=== PATIENT | female | born 1950 | race Two or more races ===

== ENCOUNTER 2019-01-22 21:33 | Inpatient (IN) | payer MEDICARE, MEDICAID ==
[~2019-01-22] VITALS: Ht 170.2 cm; Wt 92.1 kg
[2019-01-22 23:10] VITALS: BP 158/89
[2019-01-22] MEDS ORDERED: METO100T14 PO (23:38)
[2019-01-22] MEDS ORDERED: LEVO88TA5 PO (23:38)
[2019-01-22] MEDS ORDERED: METF-440 PO (23:38)
[2019-01-22] MEDS ORDERED: ATOR80TA PO (23:38)
--- NOTE | 2019-01-22 23:55 | NUR ---
[facility]USAM HOSPITALIST DR. FRAGOSO FOR ADMITTING ORDERS AWAITING ORDERS PER DR. CHAPA HE WILL PUT IT
[2019-01-23] VITALS (8 sets, daily range): BP systolic 118–158; BP diastolic 70–89
--- NOTE | 2019-01-23 00:21 | NUR ---
RECEIVE PT VIA GURNEY FROM [facility] DIRECT ADMIT AT 01/22/19 2300 PT A/O X4, NON TOXIC APPEARING. PT STATED FEELS BETTER. DENIES CHEST PAIN AND HEADACHE AT THIS TIME. NO NAUSEA AND VOMITING, FEVER, NO C/O OF PAIN. RESPIRATIONS EVEN AND UNLABORED. KEPT CLEAN AND DRY AND COMFORTABLE. FAMILY AT BEDSIDE. SAFETY MEASURES AT ALL TIMES. WILL CONT TO MTR
[2019-01-23] MEDS ORDERED: NITROGLYCERIN 0.4 MG/TAB BOTTLE SL PRN (00:30)
[2019-01-23] MEDS ORDERED: ZOLPIDEM TARTRATE 5 MG TABLET PO PRN (00:30)
[2019-01-23] MEDS ORDERED: DEXTROSE 50%-WATER 50 ML DISP.SYRIN IV PRN (00:30)
[2019-01-23] MEDS ORDERED: HYDROCODONE/APAP 5/325MG 1 EACH TABLET PO PRN (00:30)
[2019-01-23] MEDS ORDERED: Z GUARD REMEDY 2 OZ OINT TP PRN (00:30)
[2019-01-23] MEDS ORDERED: ACETAMINOPHEN 325 MG TABLET PO PRN (00:30)
[2019-01-23] MEDS ORDERED: MAGNESIUM HYDROXIDE 30 ML UDC PO PRN (00:30)
[2019-01-23] MEDS ORDERED: ONDANSETRON HCL/PF 4 MG/2 ML VIAL IVP PRN (00:30)
[2019-01-23] MEDS ORDERED: MAG HYDROX/AL HYDROX/SIMETH 30 ML UDC PO PRN (00:30)
[2019-01-23] MEDS ORDERED: MORPHINE SULFATE INJ 2 MG/ML DISP.SYRIN IV PRN (00:30)
[2019-01-23 00:55] LABS: BASOPHILS % (AUTO) 0.5 % (0.0-2.0); EOSINOPHILS % (AUTO) 1.8 % (0.0-6.0); HEMATOCRIT 41 % (33-45); HEMOGLOBIN 14.2 g/dL (11.5-14.8); LYMPHOCYTES # (AUTO) 2.1 /CMM (0.8-4.8); LYMPHOCYTES % (AUTO) 27.9 % (20.0-44.0); MEAN CORPUSCULAR HGB CONC 35 g/dl (31.0-36.0); MEAN CORPUSCULAR VOLUME 93 fL (82-100); MONOCYTES # (AUTO) 0.5 /CMM (0.1-1.30); MONOCYTES % (AUTO) 6.7 % (2.0-12.0); NEUTROPHILS # (AUTO) 4.9 /CMM (1.8-8.9); NEUTROPHILS % (AUTO) 63.1 % (43.0-81.0); PLATELET COUNT (AUTO) 236 /CMM (150-450); RED BLOOD CELL COUNT(AUTO) 4.35 MIL/uL (4.0-5.2); WHITE BLOOD COUNT (AUTO) 7.7 K/uL (4.3-11.0)
[2019-01-23 02:42] LABS: ALANINE AMINOTRANSFERASE 39 U/L (12-78); ALBUMIN 3.8 g/dL (3.4-5.0); ALKALINE PHOSPHATASE 106 U/L (46-116); ASPARTATE AMINOTRANSFERASE 28 U/L (15-37); B-TYPE NATRIURETIC PEPTIDE 154 PG/ML (0-125); BILIRUBIN,TOTAL 0.5 mg/dL (0.2-1.0); CALCIUM, SERUM 9.2 mg/dL (8.5-10.1); CARBON DIOXIDE 26 mmol/L (21-32); CHLORIDE 103 mmol/L (98-107); CREATININE 0.7 mg/dL (0.6-1.3); GLUCOSE 147 mg/dL (74-106); MAGNESIUM 2.2 mg/dL (1.8-2.4); POTASSIUM 3.7 mmol/L (3.5-5.1); SODIUM SERUM 140 mmol/L (136-145); TOTAL PROTEIN, SERUM 8.5 g/dL (6.4-8.2); UREA NITROGEN, BLOOD 14 mg/dL (7-18)
[2019-01-23 02:51] LABS: CHOLESTEROL 216 mg/dL (<200); HDL CHOLESTEROL 48 mg/dL (40-60); LDL 129 mg/dL (0-99); THYROID STIMULATING HORMONE 11.315 uIU/mL (0.358-3.74); TRIGLYCERIDES 169 mg/dL (30-150)
[2019-01-23] MEDS: BLOOD SUGAR DIAGNOSTIC 1 EACH STRIP IN SCH ×4 (06:14→21:23)
[2019-01-23] MEDS: INSULIN REGULAR, HUMAN 100 UNIT/ML 3 ML VIAL SQ PRN ×4 (06:14→21:19)
--- NOTE | 2019-01-23 06:39 | NUR ---
PT ASLEEP AND EASILY AWAKEN, ON CARDIAC MONITORING SR 78 IN THE TELE MONITOR NO COMPLAIN OF CHEST PAIN AT THIS TIME. SLEPT WELL THROUGHOUT THE NIGHT. NO S/S OF DISTRESS, NURSING CARE RENDERED, KEPT CLEAN AND DRY AND COMFORTABLE. NEEDS ATTENDED AND ANTICIPATED. SAFETY MEASURES AT ALL TIMES. ENDORSE TO THE NEXT SHIFT.
--- NOTE | 2019-01-23 08:07 | NUR ---
RN OPENING NOTES PT AWAKE AND RESTING IN BED. NO COMPLAINTS OF PAIN, SOB OR DISTRESS AT THIS TIME. PT TELE MONITORED NSR. PT HAS A RIGHT AC #20 IV INTACT AND PATENT. SAFETY PRECAUTIONS IN PLACE, BED IN LOWEST LOCKED POSITION, X2 SIDE RAILS UP AND CALL LIGHT WITHIN REACH. WILL CONTINUE TO MONITOR.
[2019-01-23] MEDS: METFORMIN 500 MG TABLET PO SCH ×2 (08:52→17:00)
[2019-01-23] MEDS: LEVOTHYROXINE SODIUM 88 MCG TABLET PO SCH (09:09)
[2019-01-23] MEDS: ASPIRIN EC 81 MG TABLET.DR PO SCH (09:09)
[2019-01-23] MEDS: LOSARTAN POTASSIUM 50 MG TABLET PO SCH (09:10)
[2019-01-23] MEDS: METOPROLOL TARTRATE 25 MG TABLET PO SCH ×2 (09:10→21:23)
[2019-01-23 09:17] LABS: BASOPHILS % (AUTO) 0.4 % (0.0-2.0); EOSINOPHILS % (AUTO) 1.8 % (0.0-6.0); HEMATOCRIT 40 % (33-45); HEMOGLOBIN 13.9 g/dL (11.5-14.8); LYMPHOCYTES # (AUTO) 1.6 /CMM (0.8-4.8); LYMPHOCYTES % (AUTO) 24.6 % (20.0-44.0); MEAN CORPUSCULAR HGB CONC 35 g/dl (31.0-36.0); MEAN CORPUSCULAR VOLUME 93 fL (82-100); MONOCYTES # (AUTO) 0.3 /CMM (0.1-1.30); MONOCYTES % (AUTO) 5.5 % (2.0-12.0); NEUTROPHILS # (AUTO) 4.3 /CMM (1.8-8.9); NEUTROPHILS % (AUTO) 67.7 % (43.0-81.0); PLATELET COUNT (AUTO) 220 /CMM (150-450); WHITE BLOOD COUNT (AUTO) 6.4 K/uL (4.3-11.0)
--- NOTE | 2019-01-23 09:22 | NUR ---
RN NOTES PT WILL HAVE [facility] WILL HOLD METFORMIN.
[2019-01-23 09:36] LABS: CALCIUM, SERUM 8.7 mg/dL (8.5-10.1); CREATININE 0.7 mg/dL (0.6-1.3); POTASSIUM 3.6 mmol/L (3.5-5.1)
[2019-01-23 09:47] LABS: ALBUMIN 3.5 g/dL (3.4-5.0); BILIRUBIN,TOTAL 0.7 mg/dL (0.2-1.0); MAGNESIUM 1.9 mg/dL (1.8-2.4); TOTAL PROTEIN, SERUM 7.8 g/dL (6.4-8.2)
--- NOTE | 2019-01-23 18:05 | NUR ---
RN CLOSING NOTES PT AWAKE AND RESTING IN BED. NO COMPLAINTS OF PAIN, SOB OR DISTRESS DURING SHIFT. PT HAS A RIGHT AC #20 IV INTACT AND PATENT. CONSENTS AND CHECKLIST COMPLETE FOR [facility]. INFORMED PATIENT NOT TO DRINK COFFEE ON DAY OF THE ANGIOGRAM. SAFETY PRECAUTIONS IN PLACE, BED IN LOWEST LOCKED POSITION, X2 SIDE RAILS UP AND CALL LIGHT WITHIN REACH. WILL ENDORSE TO FOUR ROLL CALENDER OPERATOR NURSE FOR CONTINUITY OF CARE.
--- NOTE | 2019-01-23 20:52 | NUR ---
ALERT AND ORIENTATED X4 AMBULATING IN THE ROOM DENIES PAIN. AWARE NOT TO DRINK COFFEE FOR THE NEXT 24 HOURS AND REASON GIVEN.
[2019-01-23] MEDS ORDERED: ATORVASTATIN 40 MG TABLET PO SCH (22:00)
--- NOTE | 2019-01-24 05:14 | NUR ---
ENDING NOTES: MS. STOKES IS ALERT AND ORIENTATED THIS 12 HOURS. VERBALIZES HER NEEDS. AWARE SHE IS SCHEDULED FOR A CT ANGIO IN THE AL 01/24 AND THAT SHE NEEDS TO BE NPO AFTER MIDNIGHT. SONS AT THE BEDSIDE TO VISIT EARLY IN THE EVENING. SHE AMBULATES IN THE ROOM STEADY ON HER LEGS. NO C/O SOB SATS ARE 94% AND NO C/O C/P THIS 12 HOURS. SHE IS PLEASENT AND COOPERATIVE.
[2019-01-24] MEDS: BLOOD SUGAR DIAGNOSTIC 1 EACH STRIP IN SCH (05:59)
[2019-01-24 07:15] LABS: BASOPHILS % (AUTO) 0.6 % (0.0-2.0); EOSINOPHILS % (AUTO) 2.6 % (0.0-6.0); HEMATOCRIT 38 % (33-45); HEMOGLOBIN 13.2 g/dL (11.5-14.8); LYMPHOCYTES # (AUTO) 1.8 /CMM (0.8-4.8); LYMPHOCYTES % (AUTO) 28.1 % (20.0-44.0); MEAN CORPUSCULAR HGB CONC 35 g/dl (31.0-36.0); MEAN CORPUSCULAR VOLUME 93 fL (82-100); MONOCYTES # (AUTO) 0.5 /CMM (0.1-1.30); MONOCYTES % (AUTO) 7.4 % (2.0-12.0); NEUTROPHILS % (AUTO) 61.3 % (43.0-81.0); PLATELET COUNT (AUTO) 213 /CMM (150-450); RED BLOOD CELL COUNT(AUTO) 4.07 MIL/uL (4.0-5.2); WHITE BLOOD COUNT (AUTO) 6.5 K/uL (4.3-11.0)
[2019-01-24 07:22] LABS: CALCIUM, SERUM 8.6 mg/dL (8.5-10.1); CREATININE 0.7 mg/dL (0.6-1.3); PHOSPHORUS 3.9 mg/dL (2.5-4.9); POTASSIUM 3.8 mmol/L (3.5-5.1)
--- NOTE | 2019-01-24 07:59 | NUR ---
RN OPENING NOTES PT RESTING IN BED. NO S/S OF PAIN, DISTRESS OR SOB AT THIS TIME. PT HAS RIGHT AC #20 INTACT AND PATENT. PT AWAITING [facility] TODAY. PT NPO AT THIS TIME. WILL CONTINUE TO MONITOR. SAFETY PRECAUTIONS IN PLACE, BED IN LOWEST LOCKED POSITION, X2 SIDE RAILS UP AND CALL LIGHT WITHIN REACH. WILL CONTINUE TO MONITOR.
[2019-01-24 08:00] VITALS: BP 141/82
--- NOTE | 2019-01-24 08:16 | NUR ---
RN NOTES PT LEFT UNIT FOR [facility] ACCOMPANIED BY KATHLEEN MILLS.
[2019-01-24] MEDS ORDERED: METOPROLOL TARTRATE INJ 5 MG/5 ML AMPUL ONE ×3 (08:39→09:22)
[2019-01-24] MEDS ORDERED: IOHEXOL-350 100 ML VIAL IV ONE (08:39)
[2019-01-24] MEDS ORDERED: IV NS 0.9% 250 ML IV ONE (08:39)
[2019-01-24] MEDS ORDERED: CT SWABBABLE VALVE TRANS SET 1 EA INFUS.SET MC ONE (08:39)
[2019-01-24] MEDS: METFORMIN 500 MG TABLET PO SCH (09:00)
--- NOTE | 2019-01-24 10:26 | NUR ---
RN NOTES PT RETURNED FROM [facility]. WILL ADMINISTER 0900 DUE MEDICATIONS AT THIS TIME.
[2019-01-24] MEDS: LEVOTHYROXINE SODIUM 88 MCG TABLET PO SCH (10:30)
[2019-01-24] MEDS: METOPROLOL TARTRATE 25 MG TABLET PO SCH (10:30)
[2019-01-24 10:31] VITALS: BP 133/61
[2019-01-24] MEDS: LOSARTAN POTASSIUM 50 MG TABLET PO SCH (10:31)
[2019-01-24] MEDS: ASPIRIN EC 81 MG TABLET.DR PO SCH (10:31)
--- NOTE | 2019-01-24 11:30 | NUR ---
VEHICLE LEASING AND RENTAL MANAGER NOTES PT STABLE AT DISCHARGE. ALL PATIENT BELONGINGS TAKEN HOME WITH PATIENT. ALL DISCHARGE PAPERWORK DISCUSSED, SIGNED, COPIED, AND GIVEN TO THE PATIENT. ID AND IVS REMOVED PRIOR TO DISCHARGE. PATIENT'S DAUGHTER ROB ALONG WITH KATHLEEN TELLEZLEY TRANSPORTED PATIENT OFF UNIT. DAUGHTER WILL TRANSPORT PATIENT HOME IN PRIVATE CAR. PT LEFT UNIT AT 1130.
== END 2019-01-24 11:45 | disposition home or self-care (01) | DRG 392 ==
LOC: TELE 22:46 → MED 23:07 → TELE 23:44 → MED 01-23 17:42
PROVIDERS: ADMIT Nurse Practitioner Acute Care; ATTEND Nurse Practitioner Acute Care
DX: K21.9 Gastro-esophageal reflux disease without esophagitis (principal); E11.9 Type 2 diabetes mellitus without complications; I10 Essential (primary) hypertension; E78.5 Hyperlipidemia, unspecified; E03.9 Hypothyroidism, unspecified; I70.0 Atherosclerosis of aorta; G56.00 Carpal tunnel syndrome, unspecified upper limb; Z90.710 Acquired absence of both cervix and uterus; F41.9 Anxiety disorder, unspecified; Z87.891 Personal history of nicotine dependence
CPT/HCPCS: 36415; 75574; 80048-TC; 80053-TC; 80061-TC; 82962-TC; 83735-TC; 83880; 84100-TC; 84443-TC; 84484-TC; 85025-TC; 87081-TC; 93307-TC; G0378; J1815; J3490; J7050; Q9967